=== PATIENT | female | born 1960 | race Two or more races ===

== ENCOUNTER 2022-01-07 12:56 | Emergency (ER) | payer SELFPAY ==
[~2022-01-07] VITALS: Ht 154.9 cm; Wt 72.6 kg
[2022-01-07] MEDS ORDERED: cloNIDine HCL 0.1 MG TAB PO ONE (13:30)
[2022-01-07 14:07] VITALS: BP 141/90
== END 2022-01-07 14:08 | disposition home or self-care (01) ==
LOC: ER 12:56
DX: I16.0 Hypertensive urgency (principal); Z90.710 Acquired absence of both cervix and uterus; F17.210 Nicotine dependence, cigarettes, uncomplicated
CPT/HCPCS: 93005